=== PATIENT | male | born 2000 | race African-American/Black ===

== ENCOUNTER 2021-03-18 14:44 | Emergency (ER) | payer SELFPAY ==
[2021-03-18] MEDS ORDERED: Acetaminophen 500 MG TAB ONE (15:19)
[2021-03-18] MEDS ORDERED: Ondansetron ODT 4 MG TAB ONE (15:19)
[2021-03-19 20:57] LABS: SARS-CoV-2 PCR by NAA Not Detected (NotDetected)
== END 2021-03-18 15:58 | disposition home or self-care (01) ==
LOC: CSHERS 14:44
DX: B34.9 Viral infection, unspecified (principal); R11.2 Nausea with vomiting, unspecified; Z20.822 Contact with and (suspected) exposure to COVID-19
CPT/HCPCS: 99284; Q0162; U0003; U0005

== ENCOUNTER 2021-07-19 03:08 | Emergency (ER) | payer SELFPAY ==
[2021-07-19] MEDS ORDERED: diphenhydrAMINE 50 MG/ML VIAL ONE (04:12)
[2021-07-19] MEDS ORDERED: Acetaminophen 500 MG TAB ONE (04:12)
[2021-07-19] MEDS ORDERED: Metoclopramide HCl 10 MG/2 ML VIAL ONE (04:12)
[2021-07-19] MEDS ORDERED: Ketorolac Tromethamine 30 MG/ML VIAL ONE (04:12)
[2021-07-19 05:07] LABS: Anion Gap 15 mmol/L (10-20); BUN (Urea Nitrogen) 13 mg/dL (8.9-20.6); Calc. Creatinine Clearance 0 mL/min (70-130); Calcium 9.3 mg/dL (7.8-10.44); Carbon Dioxide 23 mmol/L (22-29); Chloride 104 mmol/L (98-107); Glucose 91 mg/dL (70-105); Potassium 3.9 mmol/L (3.5-5.1); Sodium 138 mmol/L (136-145)
[2021-07-19 05:18] LABS: SARS-CoV-2 NAA Rapid Test DETECTED (NotDetected)
[2021-07-19 05:26] LABS: #Basophils 0.1 10x3/uL (0.0-0.2); #Eosinphils 0.1 10x3/uL (0.0-0.5); #Monocytes 0.7 10x3/uL (0.0-1.1); #Neutrophils 7.9 10x3/uL (1.5-8.4); %Basophils 0.6 % (0.0-2.0); %Eosinophils 1.3 % (0.0-6.0); %Lymphocytes 5.9 % (18.0-47.0); %Monocytes 7.2 % (0.0-10.0); %Neutrophils 84.7 % (40.0-75.0); Hemoglobin 14.1 g/dL (13.5-17.5); Mean Corpuscular HGB CONC 34.2 g/dL (32.0-36.0); Mean Corpuscular Hemoglobin 31.3 pg (27.0-33.0); Mean Corpuscular Volume 91.6 fl (81.2-95.1); Mean Platelet Volume 11.9 fl (7.4-10.4); Platelet Count 179 10x3/uL (150-450); RBC Distribution Width 12.2 % (11.5-14.5); White Blood Cell (WBC) Count 9.3 10x3/uL (3.5-10.5)
== END 2021-07-19 05:05 | disposition home or self-care (01) ==
LOC: CSHERS 03:08
DX: U07.1 COVID-19 (principal)
CPT/HCPCS: 0240U; 36415; 70450; 80048; 85025; 96374; 96375; J1200; J1885; J2765

== ENCOUNTER 2021-11-21 15:27 | Emergency (ER) | payer OTHER, SELFPAY | END 2021-11-21 17:48 | disposition home or self-care (01) | LOC: CSHERS 15:27 | DX: R11.2 Nausea with vomiting, unspecified (principal) | CPT/HCPCS: 99283 ==